=== PATIENT | female | born 1955 | race African-American/Black ===

== ENCOUNTER → 2019-08-01 | Outpatient (CLI) | payer MEDICARE, BC ==
--- NOTE | 2019-08-01 16:09 | RADIOLOGY REPORT (SQ) ---
EXAM DESCRIPTION: BONE SURVEY COMPLETE COMPLETED DATE/TIME: 08/01/2019 3:49 pm REASON FOR STUDY: (D47.2)MONOCLONAL GAMMOPATHY D47.2 MONOCLONAL GAMMOPATHY COMPARISON: Two-view chest 02/05/2016 TECHNIQUE: Images of the axial and proximal appendicular skeleton are obtained, along with lateral s kull and frontal chest films. LIMITATIONS: None. FINDINGS: AP CHEST: No bony findings. Lungs are clear. Chronic elevation right hemidiaphragm. Sta ble cardiomegaly. LATERAL SKULL: No worrisome bone lesions. AP BOTH HUMERI: No worrisome bone lesions. TWO-VIEW LUMBAR SPINE: No worrisome bone lesions. TWO-VIEW THORACIC SPINE: No worrisome bone lesions. TWO VIEW CERVICAL SPINE: No worrisome bone lesions AP PELVIS: No worrisome bone lesions. AP BOTH FEMURS: No worrisome bone lesions. Osteoarthritis both hips and knees OTHER: No other significant finding. IMPRESSION: NO WORRISOME BONE LESIONS. TECHNICAL DOCUMENTATION: JOB ID: [id number] [employer]- All Rights Reserved Reading location - IP/workstation name: [email or web address]
== END ==
LOC: RAD 14:36
PROVIDERS: ATTEND Internal Medicine Hematology & Oncology
DX: D47.2 Monoclonal gammopathy (principal)
CPT/HCPCS: 77075

== ENCOUNTER → 2019-09-05 | Outpatient (CLI) | payer MEDICARE, BC ==
--- NOTE | 2019-09-06 09:10 | XCELERA REPORT ---
[address] [address] Lower Extremity Venous Evaluation Procedure: A bilateral duplex scan of the lower extremity veins was performed. The evaluation included responses to compression and other maneuvers with patient in the supine and standing positions to assess venous insufficiency. Right Sided Venous Evaluation Deep venous system evaluation shows patent veins with no significant reflux identified. Sapheno Femoral junction: no reflux. Greater Saphenous vein, Proximal thigh: reflux: no reflux. Greater Saphenous vein, mid thigh: reflux:1.37 m/sec reflux. 9 mm. Greater Saphenous vein, Distal thigh: reflux::1.24 m/sec reflux. 9 mm. Greater Saphenous vein, Proximal below knee: reflux: none Greater Saphenous vein, Mid below knee: reflux: none. Greater Saphenous vein, Distal below knee: reflux: no reflux. No significant Perforators identified. Left Sided Venous Evaluation Bandaging present which covered mid below knee GSV. Deep venous system evaluation shows patent veins with no significant reflux identified. Sapheno Femoral junction: no reflux. Greater Saphenous vein, Proximal thigh: reflux: no reflux. Greater Saphenous vein, mid thigh: reflux:no reflux. Greater Saphenous vein, Distal thigh: reflux:no reflux. Greater Saphenous vein, Proximal below knee: reflux: none Greater Saphenous vein, Mid below knee: bandaged. Greater Saphenous vein, Distal below knee: reflux: no reflux. No significant Perforators identified. Interpretation Summary No duplex evidence of DVT or obstruction in the bilateral lower extremities. Limited, though possible significant superficial reflux in the right Greater Saphenous vein. No deep reflux identified. Name: MERYL CHACKO Age: 64 yrs Gender: Female : 1955 Patient Status: Outpatient Patient Location: Study Date: 09/05/2019 02:05 PM Reason For Study: RT CALF ULCER Ordering Physician: KARINE SANZ Performed By: Orion Gates : KARINE SANZ > Felix Tellez
--- NOTE | 2019-09-06 15:32 | XCELERA REPORT ---
[address] [address] Lower Extremity Arterial Evaluation Name: MERYL CHACKO Age: 64 yrs Gender: Female : 1955 Patient Status: Outpatient Patient Location: Study Date: 09/05/2019 01:25 PM Procedure: A color flow and duplex scan of the lower extremity arteries was performed bilaterally with velocity and waveform anaylsis. Ankle brachial indicies performed. Reason For Study: RT CALF ULCER Ordering Physician: KARINE SANZ Performed By: Orion Gates Measurements and Calculations Right Left MUSIC VIDEO DIRECTOR PSV 235.1 276.4 cm/sec Prox PFA PSV -226.3 -202.3cm/sec Prox SFA PSV 232.6 273.6 cm/sec Mid SFA PSV -143.2 -143.9cm/sec Dist SFA PSV -88.5 -78.7 cm/sec Prox Pop A PSV 75.9 88.3 cm/sec Dist CORNELIO PSV 68.8 70.2 cm/sec Dist REAL ESTATE FINANCIAL ANALYST PSV -76.4 -78.1 cm/sec Braxton Pedis PSV 31.8 118.2 cm/sec Right Side Arterial Evaluation Normal velocity and triphasic waveforms noted from the Common Femoral artery to the Posterior Tibial. Biphasic with normal velocity in the Anterior tibial. Ankle Brachial index 1.01. Left Side Arterial Evaluation Normal velocity and triphasic waveforms noted from the Common Femoral artery to the Popliteal. Biphasic with normal velocity in the infrageniculate vessels. Ankle Brachial index Not obtainable due to non compressibility. Interpretation Summary Mild hemodynamically significant lesions in the bilateral lower extremities, on duplex imaging, at rest. Duplex findings of mild disease in the infrageniculate on the right , Popliteal area on the left. SUNIL's normal on right ,suggesting no significant arterial obstructive disease. On the left, Non compressibility indicating arterial wall stiffness, likely due to calcification and or atherosclerosis. : KARINE SANZ > Felix Tellez
== END ==
LOC: SP 12:56
PROVIDERS: ATTEND Nurse Practitioner Family
DX: L97.212 Non-pressure chronic ulcer of right calf with fat layer exposed (principal); L97.222 Non-pressure chronic ulcer of left calf with fat layer exposed
CPT/HCPCS: 93922; 93925; 93970

== ENCOUNTER 2019-09-13 15:35 | Inpatient (IN) | payer MEDICARE, BC ==
--- NOTE | 2019-09-13 17:19 | ER Document Report ---
ED Medical Screen (RME) - General Chief Complaint: Wound Infection Stated Complaint: WOUND CHECK/POSSIBLE INFECTION Time Seen by Provider: 09/13/19 17:15 Primary Care Provider: KARINE SANZ NP, CALENDERING MACHINE OPERATOR [Primary Care Provider] - Follow up as needed Notes: Patient is a 64-year-old female with a history of hypothyroidism, lymphedema, hypertension who presents the emergency department with a chief complaint of left lower leg wound. Patient reports she is currently being seen by Dr. Felix Tellez. She did go for her appointment today and was sent here for the emergency department to be admitted for IV antibiotics. She reports that she has bilateral lower leg wounds but that the left lower leg wound is appearing to get worse. Patient reports she was diagnosed with ulcers of her lower extremities. Patient reports increased drainage and "rotten tissue." Patient denies fever. Patient reports that she is not currently on any antibiotics. TRAVEL OUTSIDE OF THE [place] IN LAST 30 DAYS: No - Related Data Allergies/Adverse Reactions: No Known Allergies Allergy (Verified 09/13/19 17:16) Home Medications: lotrel. levothyroxine Past Medical History - Social History Frequency of alcohol use: None Drug Abuse: None - Past Medical History Cardiac Medical History: Reports: Hx Hypertension Endocrine Medical History: Reports: Hx Hypothyroidism Psychiatric Medical History: Denies: Hx Depression Physical Exam - Vital signs Vitals: Temp Pulse Resp BP Pulse Ox 99.4 F 96 18 188/69 H 96 09/13/19 15:45 09/13/19 15:45 09/13/19 15:45 09/13/19 15:45 09/13/19 15:45 Interpretation: Hypertensive Course - Re-evaluation Re-evalutation: 09/13/19 17:18 In triage patient has a large amount of dressing to bilateral lower extremities. + Lymphedema bilaterally. Patient is not tachycardic, febrile or hypotensive. Will initiate basic lab work and obtain a x-ray of the left lower extremity to rule out osteomyelitis. Patient will require a bed and reevaluation by provider in the back to thoroughly evaluate her lower leg wounds. I have greeted and performed a rapid initial assessment of this patient. A comprehensive ED assessment and evaluation of the patient, analysis of test results and completion of the medical decision making process will be conducted by additional ED providers. - Vital Signs Vital signs: Temp Pulse Resp BP Pulse Ox 99.4 F 96 18 188/69 H 96 09/13/19 15:45 09/13/19 15:45 09/13/19 15:45 09/13/19 15:45 09/13/19 15:45 Doctor's Discharge - Discharge Referrals: KARINE SANZ NP, CALENDERING MACHINE OPERATOR [Primary Care Provider] - Follow up as needed
[2019-09-13 18:04] LABS: ABSOLUTE BASOPHILS # (AUTO) 0.1 10^3/uL (0.0-0.2); ABSOLUTE EOSINOPHILS # (AUTO) 0.1 10^3/uL (0.0-0.6); ABSOLUTE LYMPHOCYTES (AUTO) 1.4 10^3/uL (0.5-4.7); ABSOLUTE MONOCYTES (AUTO) 0.7 10^3/uL (0.1-1.4); ABSOLUTE NEUT (AUTO) 11.1 10^3/uL (1.7-8.2); BASOPHILS % (AUTO) 0.8 % (0-2); EOSINOPHILS % (AUTO) 0.8 % (0-6); HEMATOCRIT 36.2 % (36.0-47.0); HEMOGLOBIN 11.8 g/dL (12.0-15.5); LYMPHOCYTES % (AUTO) 10.6 % (13-45); MEAN CORPUSCULAR HEMOGLOBIN 29.1 pg (27.0-33.4); MEAN CORPUSCULAR HGB CONC 32.6 g/dL (32.0-36.0); MEAN CORPUSCULAR VOLUME 89 fl (80-97); MONOCYTES % (AUTO) 5.4 % (3-13); PLATELET COUNT 913 10^3/uL (150-450); RED BLOOD COUNT 4.06 10^6/uL (3.72-5.28); RED CELL DISTRIBUTION WIDTH 16.8 % (11.5-14.0); SEGMENTED NEUTROPHILS % (AUTO) 82.4 % (42-78); TOTAL CELLS COUNTED % (AUTO) 100 %; WHITE BLOOD COUNT 13.5 10^3/uL (4.0-10.5)
--- NOTE | 2019-09-13 18:20 | RADIOLOGY REPORT (SQ) ---
EXAM DESCRIPTION: TIBIA FIBULA LEFT COMPLETED DATE/TIME: 09/13/2019 6:08 pm REASON FOR STUDY: lle wound, r/o osteo COMPARISON: None. NUMBER OF VIEWS: Two views. TECHNIQUE: Two radiographic images acquired of the left tibia and fibula to include the knee and ank le in at least one projection. LIMITATIONS: None. FINDINGS: MINERALIZATION: Normal. BONES: No acute fracture or dislocation. No worrisome bone lesions. No findings to suggest osteomyeli tis. SOFT TISSUES: No obvious swelling or foreign body. OTHER: No other significant finding. IMPRESSION: No findings to suggest osteomyelitis. TECHNICAL DOCUMENTATION: JOB ID: [id number] [employer]- All Rights Reserved Reading location - IP/workstation name: [email or web address]
[2019-09-13 18:32] LABS: ALKALINE PHOSPHATASE 96 U/L (38-126); ANION GAP 13 (5-19); ASPARTATE AMINO TRANSFERASE 17 U/L (14-36); BILIRUBIN,DIRECT 0.3 mg/dL (0.0-0.4); BILIRUBIN,TOTAL 0.8 mg/dL (0.2-1.3); BLOOD UREA NITROGEN 18 mg/dL (7-20); CALCIUM 9.7 mg/dL (8.4-10.2); CARBON DIOXIDE 27 mmol/L (22-30); CHLORIDE 100 mmol/L (98-107); GLUCOSE 189 mg/dL (75-110); POTASSIUM 4.9 mmol/L (3.6-5.0); TOTAL PROTEIN 8.6 g/dL (6.3-8.2)
[2019-09-13] MEDS ORDERED: VANCOMYCIN HCL INJ 1000 MG VIAL IV ONE (19:07)
[2019-09-13] MEDS ORDERED: LEVOFLOXACIN 750 MG/D5W RTU 750 MG/150 ML RTUPB IV ONE ×2 (19:07→21:00)
--- NOTE | 2019-09-13 19:15 | ER Document Report ---
ED General - General Chief Complaint: Wound Infection Stated Complaint: WOUND CHECK/POSSIBLE INFECTION Time Seen by Provider: 09/13/19 17:15 Primary Care Provider: KARINE SANZ FEDERAL JUDGE, FEDERAL JUDGE [Primary Care Provider] - Follow up as needed Mode of Arrival: Wheelchair Information source: Patient TRAVEL OUTSIDE OF THE [place] IN LAST 30 DAYS: No - HPI Onset: Other - Several years of lymphedema and edema of lower extremities but only 3 weeks of skin lesions left greater than right. Onset/Duration: Sudden Quality of pain: No pain Severity: Moderate Pain Level: 2 Associated symptoms: Leg swelling Exacerbated by: Walking Similar symptoms previously: Yes Recently seen / treated by doctor: Yes - Dr. John Tellez - Related Data Allergies/Adverse Reactions: No Known Allergies Allergy (Verified 09/13/19 17:16) Home Medications: lotrel. levothyroxine Past Medical History - General Information source: Patient - Social History Smoking Status: Never Smoker Cigarette use (# per day): No Chew tobacco use (# tins/day): No Smoking Education Provided: No Frequency of alcohol use: None Drug Abuse: None Family History: Hypertension, Thyroid Disfunction Patient has suicidal ideation: No Patient has homicidal ideation: No - Past Medical History Cardiac Medical History: Reports: Hx Hypertension Endocrine Medical History: Reports: Hx Hypothyroidism Psychiatric Medical History: Denies: Hx Depression Review of Systems - Review of Systems Constitutional: Malaise, Weakness EENT: No symptoms reported Cardiovascular: No symptoms reported Respiratory: No symptoms reported Gastrointestinal: No symptoms reported Genitourinary: No symptoms reported Female Genitourinary: No symptoms reported Musculoskeletal: Joint swelling, Leg swelling, Ankle swelling Skin: See HPI, Lesions - Patient has 2 skin lesions on the left lower extremity and 2 skin lesions on the right lower extremity Hematologic/Lymphatic: No symptoms reported Neurological/Psychological: No symptoms reported Physical Exam - Vital signs Vitals: Temp Pulse Resp BP Pulse Ox 99.4 F 96 18 188/69 H 96 09/13/19 15:45 09/13/19 15:45 09/13/19 15:45 09/13/19 15:45 09/13/19 15:45 Interpretation: Hypertensive, Febrile - General General appearance: Alert In distress: None - HEENT Head: Normocephalic, Atraumatic Eyes: Normal Pupils: PERRL - Extremities General upper extremity: Normal inspection General lower extremity: Tender, Edema, Other - Left lower extremity with a left lateral leg 20 centometer length by 8 cm width odorous stasis ulcer with necrotic tissue proximally and also anteriorly annular appearing 5 cm ulceration with granulation tissue;; her right lower extremity has a distal annular 5 cm ulceration and her right lateral malleolus with a annular right sonometer ulceration stasis type Course - Vital Signs Vital signs: Temp Pulse Resp BP Pulse Ox 99.4 F 96 18 188/69 H 96 09/13/19 15:45 09/13/19 15:45 09/13/19 15:45 09/13/19 15:45 09/13/19 15:45 - Laboratory Result Diagrams: 09/13/19 17:30 09/13/19 17:30 Laboratory results interpreted by me: 09/13/19 09/13/19 17:30 17:30 WBC 13.5 H Hgb 11.8 L RDW 16.8 H Plt Count 913 H Lymph % (Auto) 10.6 L Absolute Neuts (auto) 11.1 H Seg Neutrophils % 82.4 H Est GFR (MDRD) Non-Af 58 L Glucose 189 H Total Protein 8.6 H - Diagnostic Test Radiology reviewed: Reports reviewed Critical Care Note - Critical Care Note Total time excluding time spent on procedures (mins): 90 Comments: This was discussed with Dr. Lavon Ball hospitalist and he advises consultation with Dr. Alexis Valderrama who was also called around 2000 hrs. and he advises he will consulted and see the patient but under Dr. Ball's admission. Discharge - Discharge Clinical Impression: Stasis edema with ulcer of both lower extremities Infected pressure ulcer Qualifiers: Pressure injury stage: stage 4 Qualified Code(s): L89.94 - Pressure ulcer of un specified site, stage 4 Condition: Good Disposition: ADMITTED INPATIENT Admitting Provider: Quinn (Hospitalist) Unit Admitted: Medical Floor Additional Instructions: transfer this patient to the medicine floor Referrals: KARINE SANZ NP, FEDERAL JUDGE [Primary Care Provider] - Follow up as needed
[2019-09-13] MEDS ORDERED: ACETAMINOPHEN 325 MG TABLET PO PRN (20:07)
[2019-09-13] MEDS ORDERED: IPRATROPIUM/ALBUTEROL 0.5-2.5 MG/3 ML AMPUL NEB PRN (20:07)
[2019-09-13] MEDS ORDERED: MAG HYDROX/AL HYDROX/SIMETH SUSP 30 ML UDCUP PO PRN (20:07)
[2019-09-13] MEDS: HEPARIN SOD (PORCINE) 5,000 UNIT/ML 1 ML VIAL SUBCUT SCH (23:48)
--- NOTE | 2019-09-14 00:15 | PDOC CONSULTATION ---
Consultation Consult Date: 09/14/19 Attending physician:: KAPIL SHEPHERD Provider Consulted: VARGHESE JACOB Consult reason:: lower extremity stasis ulcers. History of Present Illness Admission Date/PCP: 09/13/19 20:55 GLORIA UMANA NP History of Present Illness: MERYL CHACKO is a 64 year old female with a history of hypothyroidism, lymphedema, hypertension who presents the emergency department with a chief complaint of left lower leg wound. Patient reports she is currently being seen by Dr. Felix Tellez. She did go for her appointment today and was sent here for the emergency department to be admitted for IV antibiotics. She reports that she has bilateral lower leg wounds but that the left lower leg wound is appearing to get worse. Patient reports she was diagnosed with ulcers of her lower extremities. Patient reports increased drainage and "rotten tissue." Patient denies fever. Patient reports that she is not currently on any antibiotics. TRAVEL OUTSIDE OF THE [place] IN LAST 30 DAYS: No Past Medical History Medical History: Other - morbid obesity Cardiac Medical History: Reports: Hypertension Endocrine Medical History: Reports: Hypothyroidism Psychiatric Medical History: Denies: Depression Past Surgical History Past Surgical History: Reports: Hysterectomy Social History Smoking Status: Never Smoker Frequency of Alcohol Use: None Hx Recreational Drug Use: No Drugs: None Hx Prescription Drug Abuse: No Family History Family History: Hypertension, Thyroid Disfunction Parental Family History Reviewed: No Children Family History Reviewed: NA Sibling(s) Family History Reviewed.: NA Medication/Allergy Home Medications: Amlodipine Besylate/Benazepril [Amlodipine-Benazepril 10-40 mg] 1 each PO DAILY 09/13/19 Levothyroxine Sodium 200 mcg PO Q6AM 09/13/19 Levothyroxine Sodium [Synthroid 0.025 mg Tablet] 0.025 mg PO Q6AM 09/13/19 Oxybutynin Chloride [Ditropan 5 Mg Tablet] 5 mg PO DAILY 09/13/19 Allergies/Adverse Reactions: No Known Allergies Allergy (Verified 09/13/19 17:16) Review of Systems Constitutional: PRESENT: as per HPI, fatigue Eyes: ABSENT: as per HPI, visual disturbances, other Ears: ABSENT: as per HPI, hearing changes, other Nose, Mouth, and Throat: ABSENT: as per HPI, headache(s), mouth pain, sore throat, vertigo, other Breasts: ABSENT: as per HPI, other Cardiovascular: ABSENT: as per HPI, chest pain, dyspnea on exertion, edema, orthropnea, palpitations, other Respiratory: ABSENT: as per HPI, cough, dyspnea, hemoptysis, sputum, other Gastrointestinal: ABSENT: as per HPI, abdominal pain, bloating, coffee ground emesis, constipation, diarrhea, dysphagia, heartburn, hematemesis, hematochezia, melena, nausea, vomiting, other Genitourinary: ABSENT: as per HPI, difficulty urinating, dysuria, hematuria, nocturia, other Musculoskeletal: ABSENT: joint swelling Integumentary: PRESENT: as per HPI Neurological: ABSENT: as per HPI, abnormal gait, abnormal movements, abnormal speech, confusion, convulsions, dizziness, focal weakness, frequent falls, lack of coordination, memory loss, numbness, paresthesias, restless legs, syncope, tingling, tremor(s), vertigo, weakness, other Psychiatric: ABSENT: as per HPI, anxiety, depression, hallucinations, homidical ideation, suicidal ideation, other Endocrine: ABSENT: as per HPI, cold intolerance, flushing, heat intolerance, menstrual abnormalities, polydipsia, polyphagia, polyuria, other Hematologic/Lymphatic: ABSENT: as per HPI, easy bleeding, easy bruising, lymphadenopathy, other Allergic/Immunologic: ABSENT: as per HPI, seasonal rhinorrhea, other Physical Exam Vital Signs: Temp Pulse Resp BP Pulse Ox 99.1 F 67 18 158/66 H 95 09/13/19 21:24 09/13/19 21:24 09/13/19 21:24 09/13/19 21:24 09/13/19 21:24 Intake & Output 09/12/19 09/13/19 09/14/19 06:59 06:59 06:59 Weight 189.6 kg General appearance: PRESENT: mild distress Head exam: PRESENT: normocephalic Eye exam: PRESENT: EOMI Mouth exam: PRESENT: dry mucosa Neck exam: PRESENT: full ROM Respiratory exam: PRESENT: clear to auscultation valentin Cardiovascular exam: PRESENT: RRR Pulses: PRESENT: normal femoral pulses, normal dorsalis pedis pul Vascular exam: PRESENT: normal capillary refill GI/Abdominal exam: PRESENT: soft Rectal exam: PRESENT: deferred Musculoskeletal exam: PRESENT: other - Bilateral lower extremity edema secondary to lymphedema. There are number of ulcers on both lower extremities below the knees on the anterior calfs. On the right side there is approximately a 4 cm diameter ulcer anteriorly that has good granulation bed and appears to be clean based lateral aspect also has a smaller ulcer about 2 and half centimeters in diameter also has a clean base without evidence of necrosis. On the left side on the anterior lateral aspect of the calf there is an area of approximately 8 to 10 cm wide by 3 to 4 cm high that has areas of superficial necrosis as well as areas of healing however the superficial necrosis is in the epidermis and easily sloughs. Neurological exam: PRESENT: alert, awake, oriented to person, oriented to place Psychiatric exam: PRESENT: appropriate affect Skin exam: PRESENT: dry Results Laboratory Results: 09/13/19 17:30 09/13/19 17:30 09/13/19 09/13/19 09/13/19 17:30 17:30 17:30 WBC 13.5 H RBC 4.06 Hgb 11.8 L Hct 36.2 MCV 89 MCH 29.1 MCHC 32.6 RDW 16.8 H Plt Count 913 H Seg Neutrophils % 82.4 H Sodium 140.3 Potassium 4.9 Chloride 100 Carbon Dioxide 27 Anion Gap 13 BUN 18 Creatinine 0.96 Est GFR ( Amer) > 60 Glucose 189 H Calcium 9.7 Total Bilirubin 0.8 AST 17 Alkaline Phosphatase 96 Total Protein 8.6 H Albumin 4.0 TSH 9.49 H Impressions: Tibia/Fibula X-Ray 09/13/19 17:15 IMPRESSION: No findings to suggest osteomyelitis. Assessment & Plan - Plan Summary Plan Summary: Impression is bilateral lower extremity lymphedema with stasis ulcers bilaterally on the left leg there is some superficial necrosis that may require debridement however at this point chemical debridement with wet-to-dry dressing changes is suggested. Recommendations would continue wet-to-dry dressings for the next couple of days with normal saline gauze dressing changes to both lower extremities with fairly snugly placed Kerlix gauze. And then change the dressing every shift. As the superficial necrosis sloughs would then consider Silvadene dressing changes. Patient to remain on IV antibiotics
--- NOTE | 2019-09-14 05:26 | PDOC H&P ---
History of Present Illness Admission Date/PCP: 09/13/19 20:55 GLORIA UMANA NP Patient complains of: Leg ulcers History of Present Illness: MERYL CHACKO is a 64 year old female with a past medical history of hypertension, hypothyroidism, super morbid obesity and bilateral lymphedema with ulcers. Patient is referred to the emergency room by wound care surgeon Dr. Tellez for worsening ulcers requiring debridement. Patient is started on vancomycin and Levaquin and referred to the hospitalist for admission. Past Medical History Cardiac Medical History: Reports: Hypertension Endocrine Medical History: Reports: Hypothyroidism Psychiatric Medical History: Denies: Depression Past Surgical History Past Surgical History: Reports: Hysterectomy Social History Information Source: Patient, [facility] Records Smoking Status: Never Smoker Electronic Cigarette use?: No Frequency of Alcohol Use: None Hx Recreational Drug Use: No Drugs: None Hx Prescription Drug Abuse: No - Advance Directive Resuscitation Status: Full Code Family History Family History: Hypertension, Thyroid Disfunction Parental Family History Reviewed: Yes Children Family History Reviewed: Yes Sibling(s) Family History Reviewed.: Yes Medication/Allergy Home Medications: Amlodipine Besylate/Benazepril [Amlodipine-Benazepril 10-40 mg] 1 each PO DAILY 09/13/19 Levothyroxine Sodium 200 mcg PO Q6AM 09/13/19 Levothyroxine Sodium [Synthroid 0.025 mg Tablet] 0.025 mg PO Q6AM 09/13/19 Oxybutynin Chloride [Ditropan 5 Mg Tablet] 5 mg PO DAILY 09/13/19 Allergies/Adverse Reactions: No Known Allergies Allergy (Verified 09/13/19 17:16) Review of Systems Constitutional: ABSENT: chills, fever(s), headache(s), weight gain, weight loss Eyes: ABSENT: visual disturbances Ears: ABSENT: hearing changes Cardiovascular: ABSENT: chest pain, dyspnea on exertion, edema, orthropnea, palpitations Respiratory: ABSENT: cough, hemoptysis Gastrointestinal: PRESENT: constipation. ABSENT: abdominal pain, diarrhea, hematemesis, hematochezia, nausea, vomiting Genitourinary: ABSENT: dysuria, hematuria Musculoskeletal: ABSENT: joint swelling Integumentary: ABSENT: rash, wounds Neurological: ABSENT: abnormal gait, abnormal speech, confusion, dizziness, focal weakness, syncope Psychiatric: ABSENT: anxiety, depression, homidical ideation, suicidal ideation Endocrine: ABSENT: cold intolerance, heat intolerance, polydipsia, polyuria Hematologic/Lymphatic: ABSENT: easy bleeding, easy bruising Physical Exam Vital Signs: Temp Pulse Resp BP Pulse Ox 98.9 F 71 20 121/52 L 98 09/14/19 04:00 09/14/19 04:00 09/14/19 04:00 09/14/19 04:00 09/13/19 22:55 Intake & Output 09/12/19 09/13/19 09/14/19 11:59 11:59 11:59 Intake Total 0 Balance 0 Weight 189.7 kg General appearance: PRESENT: cooperative, mild distress, morbidly obese, well- developed, well-nourished Head exam: PRESENT: atraumatic, normocephalic Eye exam: PRESENT: conjunctiva pink, EOMI, PERRLA. ABSENT: scleral icterus Ear exam: PRESENT: normal external ear exam Mouth exam: PRESENT: moist, tongue midline Neck exam: ABSENT: carotid bruit, JVD, lymphadenopathy, thyromegaly Respiratory exam: PRESENT: clear to auscultation valentin. ABSENT: rales, rhonchi, wheezes Cardiovascular exam: PRESENT: RRR. ABSENT: diastolic murmur, rubs, systolic mu rmur Pulses: PRESENT: normal dorsalis pedis pul Vascular exam: PRESENT: normal capillary refill GI/Abdominal exam: PRESENT: normal bowel sounds, soft. ABSENT: distended, guarding, mass, organolmegaly, rebound, tenderness Rectal exam: PRESENT: deferred Extremities exam: PRESENT: pedal edema, tenderness, +1 edema, other - Bilateral lower leg pain and erythema with several large ulcers with necrotic discharge Neurological exam: PRESENT: alert, awake, oriented to person, oriented to place, oriented to time, oriented to situation, CN II-XII grossly intact. ABSENT: motor sensory deficit Psychiatric exam: PRESENT: appropriate affect, normal mood. ABSENT: homicidal ideation, suicidal ideation Skin exam: PRESENT: erythema, other - Bilateral lower leg pain and erythema with several large ulcers greatest 20 x 6 cm with malodorous necrotic discharge. ABSENT: abrasion, intact Results Laboratory Results: 09/13/19 17:30 09/13/19 17:30 09/13/19 09/13/19 09/13/19 17:30 17:30 17:30 WBC 13.5 H RBC 4.06 Hgb 11.8 L Hct 36.2 MCV 89 MCH 29.1 MCHC 32.6 RDW 16.8 H Plt Count 913 H Seg Neutrophils % 82.4 H Sodium 140.3 Potassium 4.9 Chloride 100 Carbon Dioxide 27 Anion Gap 13 BUN 18 Creatinine 0.96 Est GFR ( Amer) > 60 Glucose 189 H Calcium 9.7 Total Bilirubin 0.8 AST 17 Alkaline Phosphatase 96 Total Protein 8.6 H Albumin 4.0 TSH 9.49 H Impressions: Tibia/Fibula X-Ray 09/13/19 17:15 IMPRESSION: No findings to suggest osteomyelitis. Assessment and Plan - Diagnosis (1) Hypertension Is this a current diagnosis for this admission?: Yes Plan: Outpatient regimen with hydralazine as needed (2) Infected pressure ulcer Qualifiers: Pressure injury stage: stage 4 Qualified Code(s): L89.94 - Pressure ulcer of unspecified site, stage 4; L08.9 - Local infection of the skin and subcutan eous tissue, unspecified Is this a current diagnosis for this admission?: Yes Plan: Follow-up surgery consult (3) Stasis edema with ulcer of both lower extremities Is this a current diagnosis for this admission?: Yes Plan: Elevation, follow-up surgical consult (4) Cellulitis Qualifiers: Site of cellulitis: extremity Site of cellulitis of extremity: lower extremity Laterality: right Qualified Code(s): L03.115 - Cellulitis of right lower limb Is this a current diagnosis for this admission?: Yes Plan: Trial empiric antibiotics of Levaquin and vancomycin, follow-up surgical consult - Time Time Spent with patient: 25-34 minutes - Inpatient Certification Medical Necessity: Need Close Monitoring Due to Risk of Patient Decompensation
[2019-09-14] MEDS: HEPARIN SOD (PORCINE) 5,000 UNIT/ML 1 ML VIAL SUBCUT SCH ×3 (05:28→22:55)
[2019-09-14] MEDS ORDERED: VANCOMYCIN HCL 0 MG in DEXTROSE 5%-WATER 250 ML IV NR (05:30)
[2019-09-14] MEDS ORDERED: VANCOMYCIN HCL INJ 1000 MG VIAL IV PRN (05:41)
[2019-09-14] MEDS ORDERED: VANCOMYCIN HCL 2,000 MG in DEXTROSE 5%-WATER 500 ML IV ONE (05:45)
[2019-09-14] MEDS: LEVOTHYROXINE SODIUM 0.1 MG TABLET PO SCH (05:51)
[2019-09-14 06:15] LABS: ABSOLUTE BASOPHILS # (AUTO) 0.1 10^3/uL (0.0-0.2); ABSOLUTE EOSINOPHILS # (AUTO) 0.1 10^3/uL (0.0-0.6); ABSOLUTE LYMPHOCYTES (AUTO) 1.3 10^3/uL (0.5-4.7); ABSOLUTE MONOCYTES (AUTO) 0.7 10^3/uL (0.1-1.4); BASOPHILS % (AUTO) 0.8 % (0-2); EOSINOPHILS % (AUTO) 1.5 % (0-6); HEMATOCRIT 31.5 % (36.0-47.0); HEMOGLOBIN 10.6 g/dL (12.0-15.5); LYMPHOCYTES % (AUTO) 13.9 % (13-45); MEAN CORPUSCULAR HEMOGLOBIN 29.6 pg (27.0-33.4); MEAN CORPUSCULAR HGB CONC 33.7 g/dL (32.0-36.0); MEAN CORPUSCULAR VOLUME 88 fl (80-97); MONOCYTES % (AUTO) 7.3 % (3-13); PLATELET COUNT 734 10^3/uL (150-450); RED BLOOD COUNT 3.59 10^6/uL (3.72-5.28); RED CELL DISTRIBUTION WIDTH 16.8 % (11.5-14.0); SEGMENTED NEUTROPHILS % (AUTO) 76.5 % (42-78); TOTAL CELLS COUNTED % (AUTO) 100 %; WHITE BLOOD COUNT 9.1 10^3/uL (4.0-10.5)
[2019-09-14 06:32] LABS: ANION GAP 9 (5-19); BLOOD UREA NITROGEN 15 mg/dL (7-20); CARBON DIOXIDE 26 mmol/L (22-30); CHLORIDE 103 mmol/L (98-107); GLUCOSE 131 mg/dL (75-110); POTASSIUM 4.7 mmol/L (3.6-5.0)
--- NOTE | 2019-09-14 09:30 | PDOC PROGRESS REPORT ---
Subjective Progress Note for:: 09/14/19 Reason For Visit: LEG CELLULITIS No complaints Physical Exam Vital Signs: Temp Pulse Resp BP Pulse Ox 98.9 F 68 20 121/52 L 98 09/14/19 04:00 09/14/19 07:00 09/14/19 04:00 09/14/19 04:00 09/13/19 22:55 Intake & Output 09/13/19 09/14/19 09/15/19 06:59 06:59 06:59 Intake Total 150 Output Total 200 Balance -50 Weight 189.7 kg General appearance: PRESENT: no acute distress Musculoskeletal exam: PRESENT: other - Dressings changed this morning; some cellular debris removed from left leg. Results Laboratory Results: 09/14/19 05:22 09/14/19 05:22 09/13/19 09/13/19 09/13/19 17:30 17:30 17:30 WBC 13.5 H RBC 4.06 Hgb 11.8 L Hct 36.2 MCV 89 MCH 29.1 MCHC 32.6 RDW 16.8 H Plt Count 913 H Seg Neutrophils % 82.4 H Sodium 140.3 Potassium 4.9 Chloride 100 Carbon Dioxide 27 Anion Gap 13 BUN 18 Creatinine 0.96 Est GFR ( Amer) > 60 Glucose 189 H Calcium 9.7 Total Bilirubin 0.8 AST 17 Alkaline Phosphatase 96 Total Protein 8.6 H Albumin 4.0 TSH 9.49 H 09/14/19 09/14/19 05:22 05:22 WBC 9.1 RBC 3.59 L Hgb 10.6 L Hct 31.5 L MCV 88 MCH 29.6 MCHC 33.7 RDW 16.8 H Plt Count 734 H Seg Neutrophils % 76.5 Sodium 138.0 Potassium 4.7 Chloride 103 Carbon Dioxide 26 Anion Gap 9 BUN 15 Creatinine 0.65 Est GFR ( Amer) > 60 Glucose 131 H Calcium 9.0 Total Bilirubin AST Alkaline Phosphatase Total Protein Albumin TSH Impressions: Tibia/Fibula X-Ray 09/13/19 17:15 IMPRESSION: No findings to suggest osteomyelitis. Assessment & Plan - Diagnosis (1) Stasis edema with ulcer of both lower extremities Is this a current diagnosis for this admission?: Yes Plan: Impression: No evidence of sepsis; undergoing dressing changes with gentle mechanical debridement Recommendations: 1. Will evaluate legs during afternoon dressing change today 2. Attempt to get her legs more elevated in bed. - Time Time Spent with patient: 15-24 minutes Medications reviewed and adjusted accordingly: Yes Anticipated discharge: Home
[2019-09-14] MEDS: DOCUSATE SODIUM 100 MG CAPSULE PO SCH ×2 (09:59→18:31)
[2019-09-14] MEDS ORDERED: AMLODIPINE BESYLATE PO SCH (10:00)
[2019-09-14] MEDS ORDERED: BENAZEPRIL PO SCH (10:00)
[2019-09-14] MEDS ORDERED: [UNRECOGNIZED DRUG - OTHER] PO SCH (10:00)
[2019-09-14] MEDS: AMLODIPINE BESYLATE 10 MG TABLET PO SCH (10:01)
[2019-09-14] MEDS: OXYBUTYNIN CHLORIDE 5 MG TABLET PO SCH (10:01)
[2019-09-14] MEDS: BENAZEPRIL HCL 20 MG TABLET PO SCH (10:01)
--- NOTE | 2019-09-14 10:59 | PDOC PROGRESS REPORT ---
Subjective Progress Note for:: 09/14/19 Subjective:: Patient feels well today. Patient wanted to know will be done with her wounds. Discussed plan of antibiotics and monitoring with dressings. Patient denies any shortness of breath. Patient is very pleasant. States that she has been following up with us was local surgical wound clinic. Reason For Visit: LEG CELLULITIS Physical Exam Vital Signs: Temp Pulse Resp BP Pulse Ox 98.5 F 68 18 178/56 H 98 09/14/19 08:00 09/14/19 08:00 09/14/19 08:00 09/14/19 08:00 09/14/19 08:00 Intake & Output 09/13/19 09/14/19 09/15/19 06:59 06:59 06:59 Intake Total 150 Output Total 200 Balance -50 Weight 189.7 kg General appearance: PRESENT: no acute distress, cooperative, morbidly obese Neck exam: ABSENT: JVD Respiratory exam: PRESENT: clear to auscultation valentin, unlabored. ABSENT: tachypnea, wheezes Cardiovascular exam: PRESENT: RRR, +S1, +S2, tachycardia GI/Abdominal exam: PRESENT: normal bowel sounds, soft. ABSENT: rebound, rigid, tenderness Extremities exam: PRESENT: +1 edema, other - clean dressing in b/l LE in place Neurological exam: PRESENT: alert, awake, oriented to person, oriented to place, oriented to time, oriented to situation Results Laboratory Results: 09/14/19 05:22 09/14/19 05:22 09/13/19 09/13/19 09/13/19 17:30 17:30 17:30 WBC 13.5 H RBC 4.06 Hgb 11.8 L Hct 36.2 MCV 89 MCH 29.1 MCHC 32.6 RDW 16.8 H Plt Count 913 H Seg Neutrophils % 82.4 H Sodium 140.3 Potassium 4.9 Chloride 100 Carbon Dioxide 27 Anion Gap 13 BUN 18 Creatinine 0.96 Est GFR ( Amer) > 60 Glucose 189 H Calcium 9.7 Total Bilirubin 0.8 AST 17 Alkaline Phosphatase 96 Total Protein 8.6 H Albumin 4.0 TSH 9.49 H 09/14/19 09/14/19 05:22 05:22 WBC 9.1 RBC 3.59 L Hgb 10.6 L Hct 31.5 L MCV 88 MCH 29.6 MCHC 33.7 RDW 16.8 H Plt Count 734 H Seg Neutrophils % 76.5 Sodium 138.0 Potassium 4.7 Chloride 103 Carbon Dioxide 26 Anion Gap 9 BUN 15 Creatinine 0.65 Est GFR ( Amer) > 60 Glucose 131 H Calcium 9.0 Total Bilirubin AST Alkaline Phosphatase Total Protein Albumin TSH Impressions: Tibia/Fibula X-Ray 09/13/19 17:15 IMPRESSION: No findings to suggest osteomyelitis. 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 No surgical intervention as of now. Receiving IV vancomycin and Levaquin day 1 for suspected wound infection. (2) Infected wound Is this a current diagnosis for this admission?: Yes Plan: Plan as above (3) Hypertension Qualifiers: Hypertension type: essential hypertension Qualified Code(s): I10 - Essential (primary) hypertension Is this a current diagnosis for this admission?: Yes Plan: BP uncontrolled this morning. Continue amlodipine and Benzapril and monitor BP response (4) Hypothyroid Qualifiers: Hypothyroidism type: unspecified Qualified Code(s): E03.9 - Hypothyroidism, unspecified Is this a current diagnosis for this admission?: Yes Plan: c/w synthroid (5) Morbid obesity with BMI of 60.0-69.9, adult Is this a current diagnosis for this admission?: Yes Plan: BMI 60. A1c wnl. - Time Time Spent with patient: 15-24 minutes
[2019-09-14] MEDS: VANCOMYCIN HCL 1,500 MG in DEXTROSE 5%-WATER 250 ML IV SCH (18:32)
[2019-09-14] MEDS ORDERED: LEVOFLOXACIN 750 MG/D5W RTU 750 MG/150 ML RTUPB IV SCH (22:00)
[2019-09-15 06:18] LABS: ABSOLUTE BASOPHILS # (AUTO) 0.1 10^3/uL (0.0-0.2); ABSOLUTE EOSINOPHILS # (AUTO) 0.1 10^3/uL (0.0-0.6); ABSOLUTE LYMPHOCYTES (AUTO) 1.5 10^3/uL (0.5-4.7); ABSOLUTE MONOCYTES (AUTO) 0.6 10^3/uL (0.1-1.4); ABSOLUTE NEUT (AUTO) 5.9 10^3/uL (1.7-8.2); BASOPHILS % (AUTO) 0.7 % (0-2); EOSINOPHILS % (AUTO) 1.7 % (0-6); HEMATOCRIT 33.5 % (36.0-47.0); MEAN CORPUSCULAR HEMOGLOBIN 28.8 pg (27.0-33.4); MEAN CORPUSCULAR VOLUME 87 fl (80-97); MONOCYTES % (AUTO) 7.3 % (3-13); PLATELET COUNT 744 10^3/uL (150-450); RED BLOOD COUNT 3.83 10^6/uL (3.72-5.28); RED CELL DISTRIBUTION WIDTH 16.5 % (11.5-14.0); SEGMENTED NEUTROPHILS % (AUTO) 72.3 % (42-78); TOTAL CELLS COUNTED % (AUTO) 100 %; WHITE BLOOD COUNT 8.2 10^3/uL (4.0-10.5)
[2019-09-15 06:45] LABS: ALBUMIN 3.2 g/dL (3.5-5.0); ALKALINE PHOSPHATASE 79 U/L (38-126); ANION GAP 6 (5-19); ASPARTATE AMINO TRANSFERASE 18 U/L (14-36); BILIRUBIN,TOTAL 0.8 mg/dL (0.2-1.3); BLOOD UREA NITROGEN 11 mg/dL (7-20); CARBON DIOXIDE 26 mmol/L (22-30); CHLORIDE 106 mmol/L (98-107); GLUCOSE 123 mg/dL (75-110); POTASSIUM 4.8 mmol/L (3.6-5.0); TOTAL PROTEIN 7.2 g/dL (6.3-8.2)
[2019-09-15] MEDS: LEVOTHYROXINE SODIUM 0.1 MG TABLET PO SCH (06:47)
[2019-09-15] MEDS: VANCOMYCIN HCL 1,500 MG in DEXTROSE 5%-WATER 250 ML IV SCH (06:47)
[2019-09-15] MEDS: HEPARIN SOD (PORCINE) 5,000 UNIT/ML 1 ML VIAL SUBCUT SCH ×3 (06:47→21:50)
[2019-09-15] MEDS: DOCUSATE SODIUM 100 MG CAPSULE PO SCH ×2 (09:04→17:22)
[2019-09-15] MEDS: AMLODIPINE BESYLATE 10 MG TABLET PO SCH (09:08)
[2019-09-15] MEDS: BENAZEPRIL HCL 20 MG TABLET PO SCH (09:09)
[2019-09-15] MEDS: OXYBUTYNIN CHLORIDE 5 MG TABLET PO SCH (09:09)
--- NOTE | 2019-09-15 09:24 | PDOC PROGRESS REPORT ---
Subjective Progress Note for:: 09/15/19 Reason For Visit: LEG CELLULITIS No complaints Physical Exam Vital Signs: Temp Pulse Resp BP Pulse Ox 97.2 F 68 17 147/64 H 97 09/15/19 04:36 09/15/19 07:00 09/15/19 04:36 09/15/19 04:36 09/15/19 04:36 Intake & Output 09/14/19 09/15/19 09/16/19 06:59 06:59 06:59 Intake Total 150 2710 250 Output Total 200 Balance -50 2710 250 Weight 189.7 kg 191.5 kg General appearance: PRESENT: no acute distress Musculoskeletal exam: PRESENT: other - Dressings removed; right leg wounds are all granulating satisfactorily. Left leg anterior wound with some granulation tissue; some debris on the posterior wound, but getting removed chemically with dressing changes Results Laboratory Results: 09/15/19 06:04 09/15/19 06:04 09/15/19 09/15/19 06:04 06:04 WBC 8.2 RBC 3.83 Hgb 11.0 L Hct 33.5 L MCV 87 MCH 28.8 MCHC 33.0 RDW 16.5 H Plt Count 744 H Seg Neutrophils % 72.3 Sodium 137.8 Potassium 4.8 Chloride 106 Carbon Dioxide 26 Anion Gap 6 BUN 11 Creatinine 0.75 Est GFR ( Amer) > 60 Glucose 123 H Calcium 9.0 Total Bilirubin 0.8 AST 18 Alkaline Phosphatase 79 Total Protein 7.2 Albumin 3.2 L Impressions: Tibia/Fibula X-Ray 09/13/19 17:15 IMPRESSION: No findings to suggest osteomyelitis. Assessment & Plan - Diagnosis (1) Stasis edema with ulcer of both lower extremities Is this a current diagnosis for this admission?: Yes Plan: Impression: Slow but steady clinical improvement in appearance of the bilateral lower extremity ulcers Recommendations: 1. Continue local wound care, intravenous antibiotics 2. We will add enzymatic debridement to the left posterior leg wound - Time Time Spent with patient: Less than 15 minutes Medications reviewed and adjusted accordingly: Yes Anticipated discharge: Home
--- NOTE | 2019-09-15 10:13 | PDOC PROGRESS REPORT ---
Subjective Progress Note for:: 09/15/19 Subjective:: Discussion regarding patient's plan with her. Also discussed her thrombocytosis which she states she has never been informed about. She acknowledges having a history of anemia but never been informed of diabetic platelet counts. Reason For Visit: LEG CELLULITIS Physical Exam Vital Signs: Temp Pulse Resp BP Pulse Ox 98.5 F 63 15 145/50 H 98 09/15/19 07:48 09/15/19 07:48 09/15/19 07:48 09/15/19 07:48 09/15/19 07:48 Intake & Output 09/14/19 09/15/19 09/16/19 06:59 06:59 06:59 Intake Total 150 2710 250 Output Total 200 Balance -50 2710 250 Weight 189.7 kg 191.5 kg General appearance: PRESENT: no acute distress, cooperative Neck exam: ABSENT: JVD Respiratory exam: PRESENT: clear to auscultation valentin, unlabored. ABSENT: tachypnea, wheezes Cardiovascular exam: PRESENT: +S1, +S2. ABSENT: bradycardia, tachycardia GI/Abdominal exam: PRESENT: soft. ABSENT: rebound, rigid, tenderness Extremities exam: PRESENT: other - Clean dressed wounds. No current drainage Neurological exam: PRESENT: alert, awake, oriented to person, oriented to place, oriented to time Results Laboratory Results: 09/15/19 06:04 09/15/19 06:04 09/15/19 09/15/19 06:04 06:04 WBC 8.2 RBC 3.83 Hgb 11.0 L Hct 33.5 L MCV 87 MCH 28.8 MCHC 33.0 RDW 16.5 H Plt Count 744 H Seg Neutrophils % 72.3 Sodium 137.8 Potassium 4.8 Chloride 106 Carbon Dioxide 26 Anion Gap 6 BUN 11 Creatinine 0.75 Est GFR ( Amer) > 60 Glucose 123 H Calcium 9.0 Total Bilirubin 0.8 AST 18 Alkaline Phosphatase 79 Total Protein 7.2 Albumin 3.2 L Impressions: Tibia/Fibula X-Ray 09/13/19 17:15 IMPRESSION: No findings to suggest osteomyelitis. 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 No surgical intervention as of now. Receiving IV vancomycin and Levaquin day 2 for suspected wound infection. (2) Infected wound Is this a current diagnosis for this admission?: Yes Plan: Plan as above (3) Thrombocytosis Is this a current diagnosis for this admission?: Yes Plan: This appears to be acute on chronic. Noted platelet count in the 500s in 2016 but now persisting in the 700s Possibly due to reactive thrombocytosis from anemia/infection but will need to rule out primary thrombocytosis. We will check DEMETRA-STAT mutation and patient will follow-up with manager process excellence in the outpatient setting. (4) Hypertension Qualifiers: Hypertension type: essential hypertension Qualified Code(s): I10 - Essential (primary) hypertension Is this a current diagnosis for this admission?: Yes Plan: Sachin controlled this morning Continue amlodipine and Benzapril (5) Hypothyroid Qualifiers: Hypothyroidism type: unspecified Qualified Code(s): E03.9 - Hypothyroidism, unspecified Is this a current diagnosis for this admission?: Yes Plan: c/w synthroid (6) Morbid obesity with BMI of 60.0-69.9, adult Is this a current diagnosis for this admission?: Yes Plan: BMI 60. A1c wnl. - Time Time Spent with patient: 15-24 minutes
[2019-09-15] MEDS: AMOXICILLIN TR/POT CLAVULANATE 500-125 MG TAB PO SCH ×2 (16:19→22:56)
[2019-09-15] MEDS: SULFAMETHOXAZOLE/TRIMETHOPRIM 800-160 MG TABLET PO SCH (17:23)
[2019-09-15] MEDS: COLLAGENASE CLOSTRIDIUM HIST. OINT 30 GM TP PRN (22:56)
[2019-09-16] MEDS: SULFAMETHOXAZOLE/TRIMETHOPRIM 800-160 MG TABLET PO SCH (05:30)
[2019-09-16] MEDS: AMOXICILLIN TR/POT CLAVULANATE 500-125 MG TAB PO SCH ×2 (05:30→14:17)
[2019-09-16] MEDS: LEVOTHYROXINE SODIUM 0.1 MG TABLET PO SCH (05:30)
[2019-09-16] MEDS: HEPARIN SOD (PORCINE) 5,000 UNIT/ML 1 ML VIAL SUBCUT SCH ×2 (05:30→14:16)
[2019-09-16] MEDS: COLLAGENASE CLOSTRIDIUM HIST. OINT 30 GM TP PRN (06:09)
[2019-09-16 06:42] LABS: VANCOMYCIN,TROUGH 6.6 ug/mL (5.0-20.0)
[2019-09-16] MEDS: OXYBUTYNIN CHLORIDE 5 MG TABLET PO SCH (10:53)
[2019-09-16] MEDS: BENAZEPRIL HCL 20 MG TABLET PO SCH (10:53)
[2019-09-16] MEDS: AMLODIPINE BESYLATE 10 MG TABLET PO SCH (10:53)
[2019-09-16] MEDS: DOCUSATE SODIUM 100 MG CAPSULE PO SCH (10:54)
[2019-09-16 11:03] VITALS: BP 147/54
--- NOTE | 2019-09-16 11:10 | CDI QUERY ---
<CALEB JAMES - Last Filed: 09/16/19 11:09> CDI Query CDI Review: Dear Provider: To better reflect your patients severity of illness, morbidity, and resource utilization Please specify and document in the Progress Notes and Discharge Summary if you are monitoring / treating / evaluating any of the following conditions: The terms probable, suspected, likely, possible or still to be ruled out may be used if you are unable to determine the exact nature of a condition. Query Clinical indicators Please indicate if these diagnoses were ruled out or are being monitored / treated/ or evaluated: H&P: Cellulitis Qualifiers: Site of cellulitis: extremity Site of cellulitis of extremity: lower extremity Laterality: right Qualified Code(s): L03.115 - Cellulitis of right lower limb Infected pressure ulcer Qualifiers: Pressure injury stage: stage 4 Qualified Code(s): L89.94 - Pressure ulcer of unspecified site, stage 4; L08.9 - Local infection of the skin and subcutaneous tissue, unspecified Is this a current diagnosis for this admission?: Yes 64 year old, super morbid obesity and bilateral lymphedema with ulcers Abnormal labs: WBC 13.5 Plt count 913 Glucose 189 Thank you, Clinical Documentation Physician Advisors VINNIE Womack RN VINNIE Gruber Office [phone] Office [phone] <ANANTH RON - Last Filed: 09/16/19 11:50> CDI Query Agree with Query: No - I did not agree with those diagnoses. Patient seems to have infected venous wounds and not cellulitis nor pressure ulcers.
--- NOTE | 2019-09-16 15:30 | PDOC PROGRESS REPORT ---
Subjective Progress Note for:: 09/16/19 Subjective:: Patient is comfortable Reason For Visit: LEG CELLULITIS Physical Exam Vital Signs: Temp Pulse Resp BP Pulse Ox 98.4 F 72 20 147/54 H 100 09/16/19 08:00 09/16/19 08:00 09/16/19 08:00 09/16/19 08:00 09/16/19 08:00 Intake & Output 09/15/19 09/16/19 09/17/19 06:59 06:59 06:59 Intake Total 2710 2600 Balance 2710 2600 Weight 191.5 kg 188.6 kg General appearance: PRESENT: no acute distress Extremities exam: PRESENT: +2 edema - Both legs, other - Bilateral leg venous stasis ulcers granulating, no drainage, no odor Results Laboratory Results: 09/15/19 06:04 09/16/19 05:52 09/16/19 05:52 Creatinine 0.82 Est GFR ( Amer) > 60 Impressions: Tibia/Fibula X-Ray 09/13/19 17:15 IMPRESSION: No findings to suggest osteomyelitis. Assessment & Plan - Diagnosis (1) Stasis edema with ulcer of both lower extremities Is this a current diagnosis for this admission?: Yes - Time Time Spent with patient: 25-34 minutes - Plan Summary Plan Summary: Assessment: Bilateral venous stasis leg ulcers, granulating, no odor, no drainage Plan: Unna boot applied today to both legs Patient can be discharged to home by the general surgery viewpoint Unna boot to be replaced weekly by home health nurse or by the wound care nurse Follow-up with the wound care clinic weekly I will sign off. Please call us back with questions
--- NOTE | 2019-09-16 15:32 | Operative Report ---
Nonrecallable Operative Report DATE OF SURGERY: 09/16/19 PREOPERATIVE DIAGNOSIS: Bilateral leg venous stasis ulcers POSTOPERATIVE DIAGNOSIS: Same OPERATION: Placement of Unna boot to both legs SURGEON: ANETTE CRANE ANESTHESIA: Other - None TISSUE REMOVED OR ALTERED: None COMPLICATIONS: None ESTIMATED BLOOD LOSS: Not applicable INTRAOPERATIVE FINDINGS: Bilateral leg granulating venous stasis ulcers PROCEDURE: The procedure was done at bedside. Each extremity of interest was elevated and the Unna boot was placed starting from just proximal to the toes up to the foot and lower extremity to just below the knee. This was covered with Kerlix roll and an Toro bandage without tension. The patient tolerated procedure well.
--- NOTE | 2019-09-16 16:07 | PDOC DISCHARGE SUMMARY ---
Impression - Admit/DC Date/PCP Admission Date/Primary Care Provider: 09/13/19 20:55 GLORIA UMANA NP Discharge Date: 09/16/19 - Discharge Diagnosis (1) Stasis edema with ulcer of both lower extremities Is this a current diagnosis for this admission?: Yes (2) Infected wound Is this a current diagnosis for this admission?: Yes (3) Thrombocytosis Is this a current diagnosis for this admission?: Yes (4) Hypertension Is this a current diagnosis for this admission?: Yes (5) Hypothyroid Is this a current diagnosis for this admission?: Yes (6) Morbid obesity with BMI of 60.0-69.9, adult Is this a current diagnosis for this admission?: Yes - Additional Information Resuscitation Status: Full Code Discharge Activity: Activity As Tolerated Referrals: WOUND CARE [Outside] - 09/20/19 2:30 pm GEOVANNY ESPOSITO MD [ACTIVE STAFF] - Prescriptions: Amox Tr/Potassium Clavulanate [Augmentin "500" Tablet] 1 tab PO Q8 7 Days tablet Collagenase Clostridium Hist. [Santyl Ointment 30 gm] 1 applic TP DAILY 15 Days tube Sulfamethoxazole/Trimethoprim [Septra-Ds 800-160 mg Tablet] 1 tab PO Q12 8 Days #16 tablet Levothyroxine Sodium [Synthroid 0.025 mg Tablet] 0.05 mg PO Q6AM #30 Home Medications: Amlodipine Besylate/Benazepril [Amlodipine-Benazepril 10-40 mg] 1 each PO DAILY 09/13/19 Levothyroxine Sodium 200 mcg PO Q6AM 09/13/19 Oxybutynin Chloride [Ditropan 5 mg Tablet] 5 mg PO DAILY 09/13/19 Amox Tr/Potassium Clavulanate [Augmentin "500" Tablet] 1 tab PO Q8 7 Days tablet 09/16/19 Collagenase Clostridium Hist. [Santyl Ointment 30 gm] 1 applic TP DAILY 15 Days tube 09/16/19 Levothyroxine Sodium [Synthroid 0.025 mg Tablet] 0.05 mg PO Q6AM #30 09/16/19 Sulfamethoxazole/Trimethoprim [Septra-Ds 800-160 mg Tablet] 1 tab PO Q12 8 Days #16 tablet 09/16/19 History of Present Illiness History of Present Illness: MERYL CHACKO is a 64 year old female with a past medical history of hypertension, hypothyroidism, super morbid obesity and bilateral lymphedema with ulcers. Patient is referred to the emergency room by wound care surgeon Dr. Tellez for worsening ulcers requiring debridement. Patient is started on vancomycin and Levaquin and referred to the hospitalist for admission. Hospital Course Hospital Course: Patient was admitted for evaluation of infected lower extremity ulcers. Of note patient has chronic venostasis wounds for which he follows up at the wound care clinic for. On presentation, there was noted unpleasant ordor emanating from wounds. Patient also had some leukocytosis. Otherwise afebrile. There was concern for infection of the wound and she was subsequently admitted given IV antibiotics. Patient was evaluated by the surgical service who recommended against debridement or any surgical intervention. Patient received twice daily wound dressings with wet-to-dry dressings, Santyl applications. Patient's prior to discharge had her leg wrapped with Kerlix and placed in Toro bandages and placed in an Unna boot. Patient has been set up for home health to continue with dressing changes at home and has been given information to follow-up with the wound care clinic. Patient has also been given antibiotics to continue for about 8 more days. During this admission, patient was also noted to have thrombocytosis. Thrombocytosis seems to have worsened from a few years ago. It is uncertain whether this is reactive to anemia or other causes such as infection. However, we have obtained blood work to check for DEMETRA-stat mutation. Patient will follow-up with hematology for this results and for further evaluation. I have also increased patient's Synthroid from 0.225 mg to 0.25 mg given TSH of over 9. She has been given strict instructions to follow- up with her primary provider in about 6 weeks for repeat thyroid function testing. Physical Exam Vital Signs: Temp Pulse Resp BP Pulse Ox 98.4 F 72 20 147/54 H 100 09/16/19 08:00 09/16/19 08:00 09/16/19 08:00 09/16/19 08:00 09/16/19 08:00 Intake & Output 09/15/19 09/16/19 09/17/19 06:59 06:59 06:59 Intake Total 2710 2600 Balance 2710 2600 Weight 191.5 kg 188.6 kg General appearance: PRESENT: no acute distress, cooperative Cardiovascular exam: PRESENT: +S1, +S2 Extremities exam: PRESENT: other - large venous ulcers with granulation tissue in b/l LE Results Laboratory Results: WBC 8.2 10^3/uL (4.0-10.5) 09/15/19 06:04 RBC 3.83 10^6/uL (3.72-5.28) 09/15/19 06:04 Hgb 11.0 g/dL (12.0-15.5) L 09/15/19 06:04 Hct 33.5 % (36.0-47.0) L 09/15/19 06:04 MCV 87 fl (80-97) 09/15/19 06:04 MCH 28.8 pg (27.0-33.4) 09/15/19 06:04 MCHC 33.0 g/dL (32.0-36.0) 09/15/19 06:04 RDW 16.5 % (11.5-14.0) H 09/15/19 06:04 Plt Count 744 10^3/uL (150-450) H 09/15/19 06:04 Lymph % (Auto) 18.0 % (13-45) 09/15/19 06:04 Hyde % (Auto) 7.3 % (3-13) 09/15/19 06:04 Eos % (Auto) 1.7 % (0-6) 09/15/19 06:04 Baso % (Auto) 0.7 % (0-2) 09/15/19 06:04 Absolute Neuts (auto) 5.9 10^3/uL (1.7-8.2) 09/15/19 06:04 Absolute Lymphs (auto) 1.5 10^3/uL (0.5-4.7) 09/15/19 06:04 Absolute Monos (auto) 0.6 10^3/uL (0.1-1.4) 09/15/19 06:04 Absolute Eos (auto) 0.1 10^3/uL (0.0-0.6) 09/15/19 06:04 Absolute Basos (auto) 0.1 10^3/uL (0.0-0.2) 09/15/19 06:04 Seg Neutrophils % 72.3 % (42-78) 09/15/19 06:04 Sodium 137.8 mmol/L (137-145) 09/15/19 06:04 Potassium 4.8 mmol/L (3.6-5.0) 09/15/19 06:04 Chloride 106 mmol/L (98-107) 09/15/19 06:04 Carbon Dioxide 26 mmol/L (22-30) 09/15/19 06:04 Anion Gap 6 (5-19) 09/15/19 06:04 BUN 11 mg/dL (7-20) 09/15/19 06:04 Creatinine 0.82 mg/dL (0.52-1.25) 09/16/19 05:52 Est GFR ( Amer) > 60 (>60) 09/16/19 05:52 Est GFR (MDRD) Non-Af > 60 (>60) 09/16/19 05:52 Glucose 123 mg/dL (75-110) H 09/15/19 06:04 Hemoglobin A1c % 5.9 % (4.7-6.0) 09/14/19 05:22 Calcium 9.0 mg/dL (8.4-10.2) 09/15/19 06:04 Total Bilirubin 0.8 mg/dL (0.2-1.3) 09/15/19 06:04 Direct Bilirubin 0.0 mg/dL (0.0-0.4) 09/15/19 06:04 Neonat Total Bilirubin Not Reportable 09/15/19 06:04 Neonat Direct Bilirubin Not Reportable 09/15/19 06:04 Neonat Indirect Bili Not Reportable 09/15/19 06:04 AST 18 U/L (14-36) 09/15/19 06:04 ALT 10 U/L (<35) 09/15/19 06:04 Alkaline Phosphatase 79 U/L (38-126) 09/15/19 06:04 Total Protein 7.2 g/dL (6.3-8.2) 09/15/19 06:04 Albumin 3.2 g/dL (3.5-5.0) L 09/15/19 06:04 TSH 9.49 uIU/mL (0.47-4.68) H 09/13/19 17:30 Time Trough Drawn 0552 09/16/19 05:52 Vancomycin Trough 6.6 ug/mL (5.0-20.0) 09/16/19 05:52 Impressions: Tibia/Fibula X-Ray 09/13/19 17:15 IMPRESSION: No findings to suggest osteomyelitis. Plan Time Spent: Greater than 30 Minutes Stroke Is this a Stroke Patient?: No Acute Heart Failure - Is this a Heart Failure Patient?: No
== END 2019-09-16 17:30 | disposition home health service (06) | DRG 300 ==
LOC: ER 15:35 → EH 20:55 → 4S 22:50
PROVIDERS: ADMIT Internal Medicine; ATTEND Internal Medicine
DX: I83.212 Varicose veins of right lower extremity with both ulcer of calf and inflammation (principal); L97.211 Non-pressure chronic ulcer of right calf limited to breakdown of skin; Z68.44 Body mass index [BMI] 60.0-69.9, adult; L97.221 Non-pressure chronic ulcer of left calf limited to breakdown of skin; I83.222 Varicose veins of left lower extremity with both ulcer of calf and inflammation; I10 Essential (primary) hypertension; E03.9 Hypothyroidism, unspecified; E66.01 Morbid (severe) obesity due to excess calories; D47.3 Essential (hemorrhagic) thrombocythemia; Z79.890 Hormone replacement therapy; Z90.710 Acquired absence of both cervix and uterus
CPT/HCPCS: 11043; 11046; 36415; 80048; 80053; 80202; 81270; 82565; 83036; 84443; 85025; 87040; 96365; 99291; 99292; J1644; J1956; J3370; J3490; J7060